=== PATIENT | male | born 1980 | race Caucasian/White ===

== ENCOUNTER 2018-01-06 08:28 | Emergency (ER) | payer OTHER ==
[2018-01-06 08:44] VITALS: BP 111/77; PULSE 88; TEMP 98; BMI 20.3
[2018-01-06] MEDS ORDERED: IBUPROFEN 400 MG TABLET (FP) PO ONE ×2 (09:14→09:22)
--- NOTE | 2018-01-06 09:23 | PDOC ---
History of Present Illness - General Chief Complaint: Injury Stated Complaint: FOOT INJURY History Source: Patient - History of Present Illness Occurred: reports: other Severity: Yes: moderate Lower Extremity Pain Location: right: 2nd toe Past History - Past Medical History Allergies/Adverse Reactions: Allergies Allergy/AdvReac Type Severity Reaction Status Date / Time No Known Allergies Allergy Verified 01/06/18 08:39 Home Medications: Ambulatory Orders NK [No Known Home Medication] 01/06/18 Anemia: No Asthma: No Cancer: No Cardiac Disorders: No CVA: No COPD: No CHF: No Dementia: No Diabetes: No GI Disorders: No Disorders: No HTN: No Hypercholesterolemia: No Kidney Stones: No Liver Disease: No Psychiatric Problems: Yes (BIPOLAR) Seizures: No Thyroid Disease: No - Immunization History Immunization Up to Date: Yes - Suicide/Smoking/Psychosocial Hx Smoking Status: Yes Smoking History: Current every day smoker Have you smoked in the past 12 months: Yes Number of Cigarettes Smoked Daily: 20 Information on smoking cessation initiated: Yes 'Breaking Loose' booklet given: 01/06/18 Hx Alcohol Use: No Drug/Substance Use Hx: No Substance Use Type: None Hx Substance Use Treatment: No Review of Systems - Review of Systems Constitutional: No: Chills, Fever *Physical Exam - Vital Signs Last Vital Signs Temp Pulse Resp BP Pulse Ox 98.0 F 88 18 111/77 100 01/06/18 08:41 01/06/18 08:41 01/06/18 08:41 01/06/18 08:41 01/06/18 08:41 - Physical Exam General Appearance: Yes: Appropriately Dressed. No: Apparent Distress HEENT: positive: Normal Voice Respiratory/Chest: negative: Respiratory Distress Extremity: positive: Other (diffuse swelling and erythema to R 2nd toe, no increased warmth) Integumentary: positive: Dry, Warm Neurologic: positive: Fully Oriented, Alert, Normal Mood/Affect ED Treatment Course - RADIOLOGY Radiology Studies Ordered: Category Date Time Status FOOT-RIGHT [RAD] Stat Radiology 01/06/18 09:14 Ordered Medical Decision Making - Medical Decision Making 01/06/18 09:17 37 yo M, no sig hx, here w/ R 2nd toe pain and swellign s/p brother stepping on his foot > 1 week ago. Did not seek medical care at the time. Here because sxs are getting worse. No f/c See exam R/o toe fx -pain control -XR 01/06/18 09:48 Non-displaced fx to middle phalanx of right second toe. Will place randi tape and given orthopedic referral 01/06/18 09:49 Unable to locate pt in waiting room. Will continue to try to locate patient 01/06/18 09:59 Pt located. Randi tape placed. Patient discharged in stable condition *DC/Admit/Observation/Transfer Diagnosis at time of Disposition: Toe fracture, right Qualifiers: Encounter type: initial encounter Toe: unspecified toe Fracture type: closed Fracture alignment: nondisplaced Qualified Code(s): S92.911A - Unspecified fracture of right toe(s), initial encounter for closed fracture - Discharge Dispostion Disposition: HOME Condition at time of disposition: Good - Referrals Referrals: Chester Garnett MD [Primary Care Provider] - Xavier Che MD [Staff Physician] - - Patient Instructions Printed Discharge Instructions: DI for Toe Fracture Additional Instructions: Take Motrin [id number] as needed for pain and follow-up with orthopedics in 1-2 weeks - Post Discharge Activity Forms/Work/School Notes: Back to Work
== END 2018-01-06 10:01 | disposition home or self-care (01) ==
LOC: JERFT 08:28
DX: S92.591A Other fracture of right lesser toe(s), initial encounter for closed fracture (principal); W50.0XXA Accidental hit or strike by another person, initial encounter; Y93.89 Activity, other specified; Y92.89 Other specified places as the place of occurrence of the external cause; Y99.8 Other external cause status
CPT/HCPCS: 73630-TC-RT-FY; 99281-25

== ENCOUNTER 2018-10-20 15:45 | Emergency (ER) | payer OTHER ==
[2018-10-20 16:04] VITALS: BP 135/75; PULSE 72; TEMP 98.4; BMI 24.5
--- NOTE | 2018-10-20 16:05 | PDOC ---
Rapid Medical Evaluation Time Seen by Provider: 10/20/18 16:00 Medical Evaluation: Allergies Allergy/AdvReac Type Severity Reaction Status Date / Time No Known Allergies Allergy Verified 01/06/18 08:39 10/20/18 16:03 have performed a brief in-person evaluation of this patient. The patient presents with a chief complaint of: abdominal pain x > 2 months. States sent to emergency room for further evaluation of abdominal pain, constipation and black stools. Denies nausea or vomiting Pertinent physical exam findings: NAD even and unlabored breathing generalize tendernes in abdomen I have ordered the following: The patient will proceed to the ED for further evaluation. Discharge Disposition - Diagnosis Abdominal pain - Referrals - Patient Instructions - Post Discharge Activity
--- NOTE | 2018-10-20 18:00 | PDOC ---
History of Present Illness - General Chief Complaint: Pain, Acute Stated Complaint: SENT BY PCP Time Seen by Provider: 10/20/18 16:00 - History of Present Illness Initial Comments: 38 year old male with PMH of substance abuse ("everything" , has been clean for one year) presenting with abdominal pain occasional diarrhea that alternates with constipation and mild nausea. No vomiting but occasional nausea. He has multiple episodes of constipation that occasionally has multiple episode of diarrhea in between. He has had a CT scan of the abdomen at [facility] a few weeks ago that he states did not show any issues with intrabdominal structures. He does have dark brown stools occasionally but is drinking peptobismal. Denies fevers, chest pain, blood per rectum, inability to tolerate PO, or other symptoms. 10/20/18 17:59 Past History - Past Medical History Allergies/Adverse Reactions: Allergies Allergy/AdvReac Type Severity Reaction Status Date / Time No Known Allergies Allergy Verified 01/06/18 08:39 Home Medications: Ambulatory Orders Dicyclomine HCl 10 mg PO QID PRN 10 Days #30 capsule 10/20/18 Dicyclomine HCl 10 mg PO QID PRN 10 Days #45 capsule 10/20/18 Mag Hydrox/Al Hydrox/Simeth [Mylanta Suspension -] 30 ml PO Q6H #1 bottle Polyethylene Glycol 3350 [Miralax (For Bowel Prep) -] 17 gm PO DAILY #1 bottle 10/20/18 Polyethylene Glycol 3350 [Miralax (For Bowel Prep) -] 17 gm PO DAILY 10 Days #1 bottle 10/20/18 Anemia: No Asthma: No Cancer: No Cardiac Disorders: No CVA: No COPD: No CHF: No Dementia: No Diabetes: No GI Disorders: No Disorders: No HTN: No Hypercholesterolemia: No Kidney Stones: No Liver Disease: No Psychiatric Problems: Yes (BIPOLAR) Seizures: No Thyroid Disease: No - Immunization History Immunization Up to Date: Yes - Suicide/Smoking/Psychosocial Hx Smoking Status: Yes Smoking History: Current every day smoker Have you smoked in the past 12 months: Yes Number of Cigarettes Smoked Daily: 12 Information on smoking cessation initiated: No 'Breaking Loose' booklet given: 01/06/18 Hx Alcohol Use: No Drug/Substance Use Hx: No Substance Use Type: None Hx Substance Use Treatment: No Review of Systems - Review of Systems Constitutional: No: Chills, Diaphoresis, Fever, Loss of Appetite HEENTM: No: Blurred Vision, Tearing Respiratory: No: Cough, Orthopnea, Shortness of Breath Cardiac (ROS): No: Edema, Irregular Heart Rate ABD/GI: No: Diarrhea, Nausea : No: Dysuria, Discharge Musculoskeletal: No: Joint Pain, Muscle Pain Neurological: No: Headache, Numbness, Paresthesia Psychiatric: Yes: Anxiety, Stressors. No: Depression *Physical Exam - Vital Signs Last Vital Signs Temp Pulse Resp BP Pulse Ox 98.4 F 72 16 135/75 97 10/20/18 16:02 10/20/18 16:02 10/20/18 16:02 10/20/18 16:02 10/20/18 16:02 - Physical Exam General Appearance: Yes: Nourished, Appropriately Dressed. No: Apparent Distress HEENT: positive: EOMI, LUH, Normal ENT Inspection, Normal Voice Neck: positive: Trachea midline, Normal Thyroid, Supple. negative: Tender, Rigid Respiratory/Chest: positive: Lungs Clear, Normal Breath Sounds. negative: Chest Tender, Respiratory Distress, Accessory Muscle Use Cardiovascular: positive: Regular Rhythm, Regular Rate Gastrointestinal/Abdominal: positive: Normal Bowel Sounds, Flat, Soft. negative : Tender Lymphatic: negative: Adenopathy, Tenderness Musculoskeletal: positive: Normal Inspection. negative: Decreased Range of Motion Extremity: positive: Normal Capillary Refill, Normal Inspection, Normal Range of Motion. negative: Tender Integumentary: positive: Normal Color, Dry, Warm Neurologic: positive: Fully Oriented, Alert, Normal Mood/Affect, Normal Response , Motor Strength 5/5 Moderate Sedation - Procedure Monitoring Vital Signs: Procedure Monitoring Vital Signs Temperature 98.4 F 10/20/18 16:02 Pulse Rate 72 10/20/18 16:02 Respiratory Rate 16 10/20/18 16:02 Blood Pressure 135/75 10/20/18 16:02 O2 Sat by Pulse Oximetry (%) 97 10/20/18 16:02 ED Treatment Course - LABORATORY CBC & Chemistry Diagram: 10/20/18 19:30 10/20/18 19:30 Medical Decision Making - Medical Decision Making 38 year old male with normal labs, benign abdominal exam, and all labs WNL presenting for diffuse abdominal pain with alternating constipation and diarrhea. States that defecation does occasionally help his pain. He otherwise has no medical problems. abdominal XR demonstrating gas which could be the likely cause of this pain. He went to GI doctor today who sent him to the ED because he has in significant pain and did not evaluate the patient. We will send patient home with dicyclomine and miralax as well as GI follow up. 10/20/18 22:14 *DC/Admit/Observation/Transfer Diagnosis at time of Disposition: Abdominal pain - Discharge Dispostion Condition at time of disposition: Stable - Referrals Referrals: Chester Garnett MD [Primary Care Provider] - Keya Davies MD [Staff Physician] - Dav Wilks MD [Staff Physician] - - Patient Instructions Printed Discharge Instructions: DI for Abdominal Pain-Adult Additional Instructions: Please follow up with the GI doctor on this sheet LUPE. Please take the medication as prescribed. Please return to the ED if you have any new or worsening symptoms. - Post Discharge Activity
--- NOTE | 2018-10-20 18:26 | PDOC ---
Attending Attestation - Resident Resident Name: Karen Sanz - ED Attending Attestation I have performed the following: I have examined & evaluated the patient, The case was reviewed & discussed with the resident, I agree w/resident's findings & plan, Exceptions are as noted - HPI HPI: 10/20/18 18:47 38 yo male has multiple concerns and primarily reports 1 year of black stools, abdominal pain He was seen by a GI doctor today (the patient doesn't know the name of the doctor he saw)and since the pt was very anxious and had discomfort he was sent to ER -he had a recent ct scan of abd/pel at [facility] that they report was unremarkable -his PCP is Dr Mendoza 10/20/18 21:58 labs are unremarkable kub no sbo imp: IBS,chronic abd pain-pt to continue the GI workup with EDG,colonscopy - Medical Decision Making 10/20/18 20:32 chemistries are unremarkable sl leukocytosis <Kayla Castorena - Last Filed: 10/20/18 21:58> - HPI HPI: Patient notes associated 10/ abdominal pain and was seen at GI doctor today who advised him to report to the ED. - Physicial Exam PE: 10/20/18 19:07 GENERAL: Well-appearing, well-nourished. No apparent distress. HEENT: Normocephalic, atraumatic. PERRL, EOM intact. CARDIOVASCULAR: Normal S1, S2. Regular rate and rhythm. PULMONARY: Clear to auscultation bilaterally. ABDOMEN: Soft, non-distended, non-tender. Rectal: Refer to resident exam. EXTREMITIES: Normal ROM in all four extremities. No gross deformities. SKIN: Warm, dry. No rash NEUROLOGICAL: No focal neurological deficits. - Medical Decision Making Patient was discharged on dicyclomine and miralax and GI follow-up. <Tala Darnell - Last Filed: 10/21/18 01:58> Attestations - Attestations 10/20/18 18:53 Documentation prepared by Tala Darnell, acting as medical logistics specialist for Kayla Castorena MD. <Tala Darnell - Last Filed: 10/21/18 01:58>
[2018-10-20] MEDS ORDERED: SODIUM CHLORIDE 0.9% 500 ML INFUS.BAG IV ONE (18:51)
[2018-10-20] MEDS ORDERED: PANTOPRAZOLE SODIUM 40 MG VIAL IVPUSH ONE (18:51)
[2018-10-20] MEDS ORDERED: FAMOTIDINE 20 MG/50 ML IVPB 20 MG/50 ML MG IVPB ONE ×2 (18:51→19:02)
[2018-10-20] MEDS ORDERED: PANTOPRAZOLE SODIUM 40 MG VIAL ONE (19:02)
[2018-10-20 20:00] LABS: BASO % 0.4 % (0-2.0); EOS % 1.6 % (0-4.5); HEMATOCRIT 40.9 % (35.4-49); HEMOGLOBIN 14.5 GM/dL (11.7-16.9); LYMPH % 43.3 % (8-40); MCH 35.9 pg (25.7-33.7); MCHC 35.4 g/dl (32.0-35.9); MEAN CELL VOLUME 101.4 fl (80-96); MEAN PLT VOLUME 7.8 fl (7.5-11.1); MONO % 5.6 % (3.8-10.2); NEUT % 49.1 % (42.8-82.8); PLATELET COUNT 277 K/MM3 (134-434); RBC 4.03 M/mm3 (4.00-5.60); RDW 12.6 % (11.9-15.9); WHITE BLOOD COUNT 12.8 K/mm3 (4.0-10.0)
[2018-10-20 20:22] LABS: AMYLASE 34 U/L (25-115); LIPASE 82 U/L (73-393)
[2018-10-20 20:27] LABS: ALK PHOS 74 U/L (45-117); ANION GAP 10 MMOL/L (8-16); BILIRUBIN,TOTAL 0.5 mg/dL (0.2-1); BLOOD UREA NITROGEN 7 mg/dL (7-18); CALCIUM 9.4 mg/dL (8.5-10.1); CHLORIDE 105 mmol/L (98-107); CO2 25 mmol/L (21-32); CREATININE 0.8 mg/dL (0.55-1.3); GLUCOSE,RANDOM 96 mg/dL (74-106); POTASSIUM 3.8 mmol/L (3.5-5.1); SGOT/AST 20 U/L (15-37); SGPT/ALT 19 U/L (13-61); SODIUM 139 mmol/L (136-145); TOT PROT 7.2 g/dl (6.4-8.2)
[2018-10-20 21:46] LABS: URINE APPEARANCE CLEAR; URINE BILIRUBIN NEGATIVE (<2.0 mg/dL); URINE COLOR COLORLESS; URINE GLUCOSE (UA) NEGATIVE (NEGATIVE); URINE KETONE NEGATIVE (NEGATIVE); URINE LEUK ESTERASE NEGATIVE (NEGATIVE); URINE NITRITE NEGATIVE (NEGATIVE); URINE PROTEIN NEGATIVE (NEGATIVE); URINE UROBILINOGEN NEGATIVE mg/dL (0.2-1.0)
[2018-10-20] MEDS ORDERED: SUCRALFATE 1 GM/10 ML UNIT DOSE CUPS PO ONE (21:49)
[2018-10-21 00:25] LABS: COCAINE, UR NEGATIVE ng/ml (CUTOFF=300); METHADONE, UR NEGATIVE ng/ml (CUTOFF=300); OPIATES, URI NEGATIVE ng/ml (CUTOFF=300); PHENCYCLIDINE,URINE NEGATIVE ng/ml (CUTOFF=25); URINE AMPHETAMINES NEGATIVE ng/ml (CUTOFF=500); URINE BARBITURATES NEGATIVE ng/ml (CUTOFF=200); URINE BENZODIAZEPINES NEGATIVE ng/ml (CUTOFF=200)
== END 2018-10-20 22:54 | disposition home or self-care (01) ==
LOC: JER 15:45
PROC: 3E033GC Introduction of Other Therapeutic Substance into Peripheral Vein, Percutaneous Approach (ICD-10-PCS; principal; 2018-10-20)
PROC: 3E033GC Introduction of Other Therapeutic Substance into Peripheral Vein, Percutaneous Approach (ICD-10-PCS; 2018-10-20)
DX: R10.9 Unspecified abdominal pain (principal)
CPT/HCPCS: 36415; 74019-TC-FY; 80053; 80307; 81003; 82150; 83690; 85025; 87086; 96365; 96375; 99282-25

== ENCOUNTER 2019-02-18 07:03 | Emergency (ER) | payer OTHER ==
[2019-02-18 07:39] VITALS: BP 122/93; PULSE 122; TEMP 98.5; BMI 24.4
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
== END 2019-02-18 08:10 | disposition home or self-care (01) ==
LOC: JER 07:03
DX: M54.2 Cervicalgia (principal); R10.9 Unspecified abdominal pain; M25.561 Pain in right knee; M25.551 Pain in right hip; F19.10 Other psychoactive substance abuse, uncomplicated; Z87.891 Personal history of nicotine dependence; F31.9 Bipolar disorder, unspecified
CPT/HCPCS: 99281-25

== ENCOUNTER 2019-09-17 09:22 | Emergency (ER) | payer OTHER ==
[2019-09-17 09:48] VITALS: BP 123/75; PULSE 87; TEMP 98.3; BMI 25.1
--- NOTE | 2019-09-17 10:33 | PDOC ---
History of Present Illness - General Chief Complaint: Edema Stated Complaint: EDEMA Time Seen by Provider: 09/17/19 10:17 History Source: Patient Exam Limitations: No Limitations - History of Present Illness Initial Comments: 09/17/19 10:27 39-year-old male denies past medical history presents complaining of right foot pain and swelling x5 days. Faith chills and general weakness 2 days ago which resolved on its own, denies trauma, fever, calf pain, shortness of breath, chest pain, recent travel or any other complaints. Patient reports his dog sleeps at the foot of his bed. ROS: GENERAL/CONSTITUTIONAL: No fever, chills, weakness, dizziness HEAD, EYES, EARS, NOSE AND THROAT: No changes in vision, No ear pain or discharge, No sore throat CARDIOVASCULAR: No chest pain RESPIRATORY: No shortness of breath or cough GASTROINTESTINAL: No pain, nausea, vomiting, diarrhea or constipation GENITOURINARY: No dysuria MUSCULOSKELETAL: Right foot pain, no neck or back pain SKIN: No rash NEUROLOGIC: No headache, vertigo, loss of consciousness, or loss of sensation PE: GENERAL: well-appearing, NAD HEAD: NCAT EYES: Pupils equal, round and reactive to light, sclera anicteric, conjunctiva clear ENT: pharynx: no erythema, no exudate, uvula midline NECK: supple CHEST: nontender RESP: clear, no w/r/r CARDIO: rrr, no m/g/r ABD: +BS, soft, nontender, non distended BACK: no midline spinal ttp, no CVAT EXTREMITIES: Normal range of motion, no edema NEUROLOGICAL: Normal speech, slight limp SKIN: Minimal erythema, warmth and tenderness on palpation to dorsum of right foot, positive pedal pulses 09/17/19 10:30 Is this a multiple visit Asthma Patient?: No Past History - Past Medical History Allergies/Adverse Reactions: Allergies Allergy/AdvReac Type Severity Reaction Status Date / Time No Known Allergies Allergy Verified 09/17/19 09:48 Home Medications: Ambulatory Orders Dicyclomine HCl 10 mg PO QID PRN 10 Days #30 capsule 10/20/18 Dicyclomine HCl 10 mg PO QID PRN 10 Days #45 capsule 10/20/18 Mag Hydrox/Al Hydrox/Simeth [Mylanta Suspension -] 30 ml PO Q6H #1 bottle Polyethylene Glycol 3350 [Miralax (For Bowel Prep) -] 17 gm PO DAILY #1 bottle 10/20/18 Polyethylene Glycol 3350 [Miralax (For Bowel Prep) -] 17 gm PO DAILY 10 Days #1 bottle 10/20/18 Cephalexin Monohydrate [Keflex -] 500 mg PO Q8H 7 Days #21 capsule 09/17/19 Anemia: No Asthma: No Cancer: No Cardiac Disorders: No CVA: No COPD: No CHF: No Dementia: No Diabetes: No GI Disorders: No Disorders: No HTN: No Hypercholesterolemia: No Kidney Stones: No Liver Disease: No Psychiatric Problems: Yes (BIPOLAR) Seizures: No Thyroid Disease: No - Immunization History Immunization Up to Date: Yes - Psycho Social/Smoking Cessation Hx Smoking Status: Yes Smoking History: Current every day smoker Have you smoked in the past 12 months: No Number of Cigarettes Smoked Daily: 10 Information on smoking cessation initiated: No 'Breaking Loose' booklet given: 01/06/18 Hx Alcohol Use: No Drug/Substance Use Hx: No Substance Use Type: None Hx Substance Use Treatment: No *Physical Exam - Vital Signs Last Vital Signs Temp Pulse Resp BP Pulse Ox 98.3 F 87 16 123/75 96 09/17/19 09:44 09/17/19 09:44 09/17/19 09:44 09/17/19 09:44 09/17/19 09:44 Medical Decision Making - Medical Decision Making 09/17/19 10:29 39-year-old male denies past medical history presents with atraumatic right foot pain and swelling x5 days. Exam consistent with right foot cellulitis Prescription for cephalexin sent to pharmacy Advised to take ibuprofen 600 mg every 6 hours as needed for pain Return precautions discussed Discharge - Discharge Information Problems reviewed: Yes Clinical Impression/Diagnosis: Cellulitis Qualifiers: Site of cellulitis of extremity: lower extremity Laterality: right Condition: Stable Disposition: HOME - Admission No - Follow up/Referral Referrals: Chester Garnett MD [Primary Care Provider] - - Patient Discharge Instructions Additional Instructions: Take cephalexin 500 mg every 8 hours for 7 days Return to ED if fever, chills, worsening pain and swelling Follow-up with your doctor within 1 week - Post Discharge Activity Work/Back to School Note: Back to Work
== END 2019-09-17 10:40 | disposition home or self-care (01) ==
LOC: JERFT 09:22
DX: L03.115 Cellulitis of right lower limb (principal); F31.9 Bipolar disorder, unspecified; F17.210 Nicotine dependence, cigarettes, uncomplicated
CPT/HCPCS: 99281-25

== ENCOUNTER 2020-02-18 07:08 | Emergency (ER) | payer OTHER ==
[2020-02-18 07:15] VITALS: BP 102/71; PULSE 83; TEMP 98; BMI 26.0
--- NOTE | 2020-02-18 07:28 | PDOC ---
History of Present Illness <Tucker Webster - Last Filed: 02/18/20 10:42> - General History Source: Patient Exam Limitations: Other - History of Present Illness Initial Comments: 39 year old male with PMH bipolar disorder presented to ED for right index finger lac occurring this AM. Pt reported he was cleaning his fathers wine glass in the sink, when it suddenly burst inside his hand, causing a laceration. Pt reported he washed it out, but it was bleeding a lot, prompting him to come to ED. Pt reported he also stubbed his right great toe x1 week ago, and then hit it again 2 times after that, so now he would like an XR for that. Pt is aggressive towards me. ROS General: denied fever, chills, generalized weakness. HEENT: denied sore throat, rhinorrhea, ear pain. Cardiovascular: denied chest pain, palpitations, syncope, diaphoresis. Respiratory: denied shortness of breath, cough, sputum production, hemoptysis. Gastrointestinal: denied abdominal pain, nausea, vomiting, diarrhea, constipation, blood in stool. Genitourinary: denied dysuria, increased urinary frequency, hematuria, urinary incontinence, flank pain. Back: denied back pain. Musculoskeletal: admitted to right toe pain. Neurological: denied headache, dizziness, numbness, tingling, weakness. Integumentary: admitted to laceration. denied rash, abrasion. Hematologic/Lymphatic: denied bruising or bleeding. PE Constitutional: Well-nourished, Well-developed, appearing stated age. HEENT: head is normocephalic, atraumatic. EOMI. PERRLA. Neck: supple. Full ROM. Cardiovascular: regular heart rhythm. Normal S1 and S2. no murmurs. no pericardial friction rub. Respiratory: clear to auscultation bilaterally. no crackles, rhonchi or wheezing. no stridor. Gastrointestinal: soft, flat, nontender. normal bowel sounds. no rebound, guarding, or masses. Extremities: peripheral pulses intact and equal. no lower extremity edema noted. right great toe no tenderness, no swelling, no skin changes. Neurological: CN 2-12 grossly intact. moves all four extremities. Psych: awake, alert, oriented x3. aggressive. speaking quick sentences. follows commands. answers questions appropriately. Skin: 3 cm laceration to the medial aspect of the right first finger, semi-alturas shaped, no active bleeding. <Melyssa Arango - Last Filed: 02/18/20 11:10> - General Chief Complaint: Laceration Stated Complaint: LEFT FINGER INJURY Time Seen by Provider: 02/18/20 07:28 Past History <Tucker Webster - Last Filed: 02/18/20 10:42> - Immunization History Immunization Up to Date: No - Psycho-Social/Smoking History Smoking Status: Yes Smoking History: Current every day smoker Have you smoked in the past 12 months: No Number of Cigarettes Smoked Daily: 10 Information on smoking cessation initiated: No 'Breaking Loose' booklet given: 01/06/18 <Melyssa Arango - Last Filed: 02/18/20 11:10> - Medical History Allergies/Adverse Reactions: Allergies Allergy/AdvReac Type Severity Reaction Status Date / Time No Known Allergies Allergy Verified 02/18/20 07:15 *Physical Exam - Vital Signs Last Vital Signs Temp Pulse Resp BP Pulse Ox 98 F 83 18 102/71 99 02/18/20 07:10 02/18/20 07:10 02/18/20 07:10 02/18/20 07:10 02/18/20 07:10 <Tucker Webster - Last Filed: 02/18/20 10:42> - Vital Signs Last Vital Signs Temp Pulse Resp BP Pulse Ox 98 F 83 18 102/71 99 02/18/20 07:10 02/18/20 07:10 02/18/20 07:10 02/18/20 07:10 02/18/20 07:10 <Melyssa Arango - Last Filed: 02/18/20 11:10> Procedures - Laceration/Wound Repair Right 2nd digit Wound Length: to 2.5 cm Wound Explored: clean, no foreign body present Wound's Depth, Shape: superficial, linear Irrigated w/ Saline: Yes Anesthesia: 1% Lidocaine Amount of Anesthetic (ccs): 3 Wound Repaired With: Sutures Suture Size/Type: 4:0, nylon Number of Sutures: 5 Layer Closure: Yes Sterile Dressing Applied: Yes <Tucker Webster - Last Filed: 02/18/20 10:42> ED Treatment Course - Medications Given in the ED: ED Medications Discontinued Medications Generic Name Dose Route Start Last Admin Trade Name Freq PRN Reason Stop Dose Admin Diphtheria/Tetanus/Acell Pertussis 0.5 ml 02/18/20 08:50 02/18/20 09:10 Boostrix - IM 02/18/20 08:51 0.5 ml .ONCE ONE Administration Ibuprofen 600 mg 02/18/20 08:50 02/18/20 09:10 Motrin - PO 02/18/20 08:51 600 mg ONCE ONE Administration <Tucker Webster - Last Filed: 02/18/20 10:42> Medical Decision Making - Medical Decision Making 39 year old male with above PMH presented to ED for finger laceration and right toe pain. Initial Vital Signs Temp Pulse Resp BP Pulse Ox 98 F 83 18 102/71 99 02/18/20 07:10 02/18/20 07:10 02/18/20 07:10 02/18/20 07:10 02/18/20 07:10 Afebrile. No tachycardia. No tachypnea. Mild hypotension. No hypoxia on room air. 02/18/20 09:18 XR reports: Manju Roberts Name: [facility] Phys: Melyssa Arango RESIDENT : 1980 Age: 39 Sex: M [facility] Acct: [id number] Loc: [address] Exam Date: 02/18/20 Status: KENDRA [place] [id number] Unit Number: [id number] EXAM#: TYPE/EXAM: RESULT: [id number] RAD/FINGER(S) RIGHT [id number] RAD/FOOT-RIGHT [id number] RAD/TOE(S) RIGHT RIGHT SECOND FINGER AP, OBLIQUE AND LATERAL VIEWS Indication: Laceration with glass, rule out foreign body No radiopaque foreign body is present. No fractures identified. Dressing in place. RIGHT FIRST TOE AP, OBLIQUE AND LATERAL VIEWS Indication: Pain in the interphalangeal joint. A fracture line defect is identified in the base of the distal phalanx of the first toe. This is only seen on the AP and oblique views and not visualized on the lateral view. Findings confirmed on the foot film revealing a fracture in the medial compartment at the base of the distal phalanx of the first toe. Extension into the joint space is suspected. Additional views as clinically warranted. No radiopaque foreign body is noted. In the middle phalanx of the second toe, lytic expansile lesion is identified with a short zone of transition suggesting a benign lesion. Findings incidental. No periosteal reaction is seen. No soft tissue component is present. If clinically warranted, MR imaging for further assessment is advised. Findings were present on prior imaging from 01/06/2018. The minimal sclerosis may represent the fracture seen at that time. RIGHT FOOT AP, OBLIQUE AND LATERAL VIEWS Indication: Pain in thel interpha langeal joint of the first toe. A fracture line is identified through the base of the distal phalanx of the first toe. The fracture is mostly in the medial compartment. Extension into the joint space is suspected. Benign-appearing lytic lesion in the middle phalanx of the second toe is again seen as discussed above. Findings appear benign, unchanged from prior imaging from 01/06/2018. Reported By: Lobito Layton MD 02/18/20911 MELYSSA ARANGO Technologist: Domitila Grey Transcribed Date/Time: 02/18/20911 Coat Repair Inspector: Lobito Layton Printed Date/Time: By: 02/18/20 10:[address] Webster, PGY3 EM doctor. See his note. Pt getting very aggressive, requesting a "pain killer prescription" because he has to work with equipment outside for work. I advised him that "pain killers" are not a morton idea while working with machinery and ibuprofen 600 mg TID should be satisfactory for his pain. Pt very upset that he will not be receiving "something stronger" because "his other doctor gave him Percocet for my knee and I worked and I was fine". I personally feel unsafe around the patient. Pt discharged, will call security if patient becomes more aggressive. 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 Stated "I have to go to work so I need something stronger because I will be in pain." I advised him to not work while his finger is injured and I will provide him with a work note. He reported "I still have to work because my dad makes me." I advised him to follow medical advice and not work with his hands. <Melysas Aranog - Last Filed: 02/18/20 11:10> Discharge <Tucker Webster - Last Filed: 02/18/20 10:42> - Discharge Information Problems reviewed: Yes - Admission No <Melyssa Arango - Last Filed: 02/18/20 11:10> - Discharge Information Clinical Impression/Diagnosis: Toe pain - Follow up/Referral Referrals: Chester Garnett MD [Primary Care Provider] - Shabbir Jacome DPM [Staff Physician] - - Patient Discharge Instructions Patient Printed Discharge Instructions: DI for Laceration Repair Additional Instructions: Follow up with your primary care doctor within 3 days regarding your ER visit. Your care is not complete until you follow up. Take ibuprofen 600 mg every 8 hours as needed for pain. Buy over the counter. Take with food or this medication can irritate your stomach. Keep the randi tape on your toes for 10 days. Do not perform heavy exercise until your pain resolves. Follow up with a fur polisher if your pain does not improve. I have provided you with a referral. WOUND CARE For the next 24 hours do not get the wound wet. After that period you should change the dressing daily. To clean the wound wash water everyday, you do not have to scrub or insert soap, just let the water run down. Pat dry. Cover the wound with bacitracin or neosporin, cover with gauze, then tape closed to keep it clean. Return to the Emergency Department if you develop redness around the wound, increased swelling, fevers, wound drainage, worsening symptoms, change in sensation/strength, increasing pain despite Motrin use, chest pain, shortness of breath, numbness, weakness or any other new, worsening or concerning symptoms. - Post Discharge Activity Work/Back to School Note: Back to Work
[2020-02-18] MEDS ORDERED: DIPHTH,PERTUSS(ACELL),TET 0.5 ML DISP.SYRIN IM ONE ×2 (08:50→08:56)
[2020-02-18] MEDS ORDERED: IBUPROFEN 600 MG TABLET (FP) PO ONE ×2 (08:50→08:56)
--- NOTE | 2020-02-18 10:59 | PDOC ---
Documentation entered by Diana Long SCRIBE, acting as scribe for Thomas Chopra MD. Thomas Chopra MD: This documentation has been prepared by the Mercedes hillman Brenda, SCRIBE, under my direction and personally reviewed by me in its entirety. I confirm that the documentation accurately reflects all work, treatment, procedures, and medical decision making performed by me. Attending Attestation - Resident Resident Name: Melyssa Villanueva - ED Attending Attestation I have performed the following: I have examined & evaluated the patient, The case was reviewed & discussed with the resident, I agree w/resident's findings & plan, Exceptions are as noted - HPI HPI: 02/18/20 09:51 The patient is a 39 year old male with a significant PMH of bipolar disorder who presents to ED for evaluation of right index finger laceration that happened this morning. Patient notes cleaning a wine glass in sink, at which time it burst in his hand suddenly, and cut his finger. Patient also endorses 2 week old toe pain after stubbing his toe twice. Denies SI/HI, AH/VH. Denies falls, head strike. Does not remember last tdap. Allergies: NKA - Physicial Exam PE: 02/18/20 10:47 Agree with resident exam - Medical Decision Making 02/18/20 10:57 39yo M presents to the ED with finger laceration, plan for XR to r/o FB and lac repair. Will also update tdap Toe XR reveals fracture, will randi tape and give referral to podiatry Pain well controlled, pt clinically stable for DC home Discharge - Discharge Information Problems reviewed: Yes Clinical Impression/Diagnosis: Toe pain - Follow up/Referral Referrals: Chester Garnett MD [Primary Care Provider] - Shabbir Jacome DPM [Staff Physician] - - Patient Discharge Instructions Patient Printed Discharge Instructions: DI for Laceration Repair Additional Instructions: Follow up with your primary care doctor within 3 days regarding your ER visit. Your care is not complete until you follow up. Take ibuprofen 600 mg every 8 hours as needed for pain. Buy over the counter. Take with food or this medication can irritate your stomach. Keep the randi tape on your toes for 10 days. Do not perform heavy exercise until your pain resolves. Follow up with a marketing project manager if your pain does not improve. I have provided you with a referral. WOUND CARE For the next 24 hours do not get the wound wet. After that period you should change the dressing daily. To clean the wound wash water everyday, you do not have to scrub or insert soap, just let the water run down. Pat dry. Cover the wound with bacitracin or neosporin, cover with gauze, then tape closed to keep it clean. Return to the Emergency Department if you develop redness around the wound, increased swelling, fevers, wound drainage, worsening symptoms, change in sensation/strength, increasing pain despite Motrin use, chest pain, shortness of breath, numbness, weakness or any other new, worsening or concerning symptoms. - Post Discharge Activity Work/Back to School Note: Back to Work
== END 2020-02-18 11:11 | disposition home or self-care (01) ==
LOC: JER 07:08
PROC: 0HQFXZZ Repair Right Hand Skin, External Approach (ICD-10-PCS; principal; 2020-02-18)
PROC: 3E0234Z Introduction of Serum, Toxoid and Vaccine into Muscle, Percutaneous Approach (ICD-10-PCS; principal; 2020-02-18)
DX: M79.674 Pain in right toe(s) (principal); S61.210A Laceration without foreign body of right index finger without damage to nail, initial encounter; W25.XXXA Contact with sharp glass, initial encounter
CPT/HCPCS: 73140-TC-RT-FY; 73630-TC-RT-FY; 73660-TC-FY; 90715; 99284-25

== ENCOUNTER 2021-04-14 07:40 | Emergency (ER) | payer OTHER ==
[2021-04-14 07:46] VITALS: BP 130/76; PULSE 98; TEMP 97.8; BMI 24.5
== END 2021-04-14 08:28 | disposition home or self-care (01) ==
LOC: JERFT 07:40 → JER 07:40 → JERFT 08:28
DX: T16.1XXA Foreign body in right ear, initial encounter (principal); T16.2XXA Foreign body in left ear, initial encounter; Z87.821 Personal history of retained foreign body fully removed
CPT/HCPCS: 99281-25